=== PATIENT | female | born 1970 | race Caucasian/White ===

== ENCOUNTER 2017-01-23 19:03 | Emergency (ER) | payer MEDICAID ==
[~2017-01-23] VITALS: Ht 152.4 cm; Wt 73.0 kg
[~2017-01-23 19:03] MED LIST: MEGE40TA PO
[2017-01-23 19:08] VITALS: Ht 152.4 cm; Wt 73.0 kg
[2017-01-23] MEDS ORDERED: AMO500 PO (19:32)
[2017-01-23] MEDS ORDERED: IBUP-1542 PO (19:32)
[2017-01-23] MEDS ORDERED: LIDO20SO19 MM (19:32)
--- NOTE | 2017-01-23 21:18 | ERD ---
ER Documentation Chief Complaint Date/Time DATE: 01/23/17 TIME: 21:16 Chief Complaint sore throat x 3 days HPI This patient is a 46-year-old female with history of asthma and pre-type 2 diabetes presenting to the emergency department for moderate sore throat and bilateral ear pain and chills ongoing intermittently for the past 3 days. The patient has taken Advil at home with no relief of symptoms. There are no other alleviating or exacerbating factors or symptoms to report at this time. ROS All systems reviewed and are negative except as per history of present illness. Medications Home Meds Active Scripts Ibuprofen* (Motrin*) 600 Mg Tab, 600 MG PO Q6, #30 TAB Prov:ZACH ESCOBAR PA-C 01/23/17 Lidocaine (Lidocaine Viscous) 100 Ml Soln, 10 ML MM TID Y for PAIN, #1 BOTTLE Prov:ZACH ESCOBAR PA-C 01/23/17 Amoxicillin* (Amoxicillin*) 500 Mg Cap, 500 MG PO BID for 10 Days, #20 CAP Prov:ZACH ESCOBAR PA-C 01/23/17 Megestrol Acetate* (Megace*) 40 Mg Tab, 40 MG PO DAILY for 20 Days, TAB Prov:BELKIS CORDERO MD 07/17/15 Allergies Allergies: Coded Allergies: No Known Drug Allergy (Unverified Allergy, Unknown, 07/17/15) PMhx/Soc History of Surgery: No Anesthesia Reaction: No Hx Neurological Disorder: No Hx Respiratory Disorders: No Hx Cardiac Disorders: No Hx Psychiatric Problems: No Hx Miscellaneous Medical Probl: No Hx Alcohol Use: No Hx Substance Use: No Hx Tobacco Use: No FmHx Noncontributory for chief complaint Physical Exam Vitals Vital Signs Date Time Temp Pulse Resp B/P Pulse Ox O2 Delivery O2 Flow Rate FiO2 01/23/17 19:08 98.8 102 20 141/66 100 Physical Exam Const: The patient is resting comfortably in no acute distress. Head: Atraumatic Eyes: Normal Conjunctiva ENT: There is erythema to bilateral tympanic membranes. There is no bulging of tympanic membranes bilaterally. The tonsils are slightly enlarged and erythematous with scant exudate present bilaterally. The airway is clear. There is no uvular shift. Neck: Full range of motion..~ No meningismus. Resp: Clear to auscultation bilaterally Cardio: Regular rate and rhythm, no murmurs Abd: Soft, non tender, non distended. Normal bowel sounds Skin: No petechiae or rashes Back: No midline or flank tenderness Ext: No cyanosis, or edema Neur: Awake and alert Psych: Normal Mood and Affect Procedures/MDM 46-year-old female presents secondary to complaints of sore throat and tactile fevers and bilateral ear pain. On physical examination the patient's vitals are within normal limits. Examination of the tympanic membranes bilaterally reveals erythema but no mastoid tenderness or bulging of the tympanic membranes or evidence of TM rupture bilaterally. Additionally there is erythema with scant exudate of the tonsils bilaterally. I suspect strep pharyngitis and otitis media. I doubt tympanic membrane rupture, mastoiditis, peritonsillar abscess, retropharyngeal abscess, septicemia, or other emergent conditions. The patient is stable for outpatient management with prescriptions for amoxicillin, viscous lidocaine, and ibuprofen. The patient understands the diagnosis and treatment plan. All questions and concerns were addressed. The patient was advised to return to the emergency department immediately with any new or worsening symptoms and she demonstrates good understanding of this information. Patient was hemodynamically stable prior to discharge. Departure Diagnosis: Primary Impression: Otitis media Additional Impressions: Tonsillitis Sore throat Condition: Fair Patient Instructions: When You Have a Sore Throat, Self-Care for Sore Throats, Otitis Media, Abx Tx (Adult) [facility] Usted se marvin hecho un examen mdico de control que le indica que no est en jesse condicin que requiera tratamiento urgente en el Departamento de Emergencia. Un estudio ms profundo y el tratamiento de cerna condicin pueden esperar sin ningn riesgo hasta que usted sea atendida/o en el consultorio de cerna mdico o jesse cl jackie. Es responsabilidad suya arreglar jesse vamsi para el seguimiento del pedro. MANEJO DE CONDICIONES NO URGENTES EN EL FUTURO 1) Si usted tiene un mdico de atencin primaria: Usted debera llamar a cerna mdico de atencin primaria antes de venir al departamento de emergencia. Despus de las horas de consultorio, cerna doctor o cerna asociado/a est disponible por telfono. El mdico o enfermero de tino en el servicio telefnico puede asesorarle por maribell medio para atender el problema, o pedro contrario se puede programar jesse vamsi. 2) Si usted no tiene un mdico de atencin primaria: Llame al mdico o clnica de referencia que aparece abajo dong las horas de consultorio para hacer jesse vamsi para que le vean. CLINICAS: [facility] [phone] [facility] [phone] [facility] [phone] [place] [id number] [phone] [place] [id number] [phone] [facility]. [phone] [address] Additional Instructions: No mas mejor en 2-3 richter, regresar. Mas peor en 24 horas, regresear rapidamente. Ir a doctor primario in 5-7 richter. Usar instrucciones cuando ngoc medicamento. ZACH ESCOBAR PA-C Jan 23, 2017 21:18
== END 2017-01-23 19:33 | disposition home or self-care (01) ==
LOC: FTE 19:03 → E/R 19:33
DX: H66.93 Otitis media, unspecified, bilateral (principal); J03.90 Acute tonsillitis, unspecified
CPT/HCPCS: 99283

== ENCOUNTER 2019-06-09 18:43 | Emergency (ER) | payer MEDICAID, OTHER ==
[~2019-06-09] VITALS: Ht 147.3 cm; Wt 70.5 kg
[~2019-06-09 18:43] MED LIST changes: +AMOX500C2 PO; +IBUP-1542 PO; +LIDO20SO19 MM
[2019-06-09 18:46] VITALS: BP 159/77; PULSE 84; RESP 18; Ht 147.3 cm; Wt 70.5 kg
[2019-06-09] MEDS ORDERED: D-ME118S24 PO (20:31)
[2019-06-09] MEDS ORDERED: FLOV110 INHALATION (20:31)
[2019-06-09] MEDS ORDERED: PRED20TA PO (20:35)
--- NOTE | 2019-06-09 22:22 | ERD ---
ER Documentation Chief Complaint Chief Complaint COUGH X2DAYS ROS All systems reviewed and are negative except as per history of present illness. Medications Home Meds Active Scripts Prednisone* (Prednisone*) 20 Mg Tab, 20 MG PO DAILY for 4 Days, #4 TAB Prov:JUAN MARSHALL DO 06/09/19 D-Methorphan Hb/P-Epd HCl/Bpm (Rhylrcsicq-Npabcgzkpda-Tp Syr) 118 Ml Syrup, 15 ML PO Q4H PRN for COUGH for 10 Days, #1 BOTTLE Prov:JUAN MARSHALL DO 06/09/19 Fluticasone Propionate* (Flovent* HFA 110) 12 Gm Inha, 1 PUFF INHALATION BID for cough for 14 Days, #1 INHALER Prov:JUAN MARSHALL DO 06/09/19 Ibuprofen* (Motrin*) 600 Mg Tab, 600 MG PO Q6, #30 TAB Prov:ZACH ESCOBAR PA-C 01/23/17 Lidocaine (Lidocaine Viscous) 100 Ml Soln, 10 ML MM TID PRN for PAIN, #1 BOTTLE Prov:ZACH ESCOBAR PA-C 01/23/17 Amoxicillin* (Amoxicillin*) 500 Mg Cap, 500 MG PO BID for 10 Days, #20 CAP Prov:ZACH ESCOBAR PA-C 01/23/17 Megestrol Acetate* (Megace*) 40 Mg Tab, 40 MG PO DAILY for 20 Days, TAB Prov:BELKIS CORDERO MD 07/17/15 Allergies Allergies: Coded Allergies: No Known Drug Allergy (Unverified Allergy, Unknown, 07/17/15) PMhx/Soc History of Surgery: No Anesthesia Reaction: No Hx Neurological Disorder: No Hx Respiratory Disorders: No Hx Cardiac Disorders: No Hx Psychiatric Problems: No Hx Miscellaneous Medical Probl: No Hx Alcohol Use: No Hx Substance Use: No Hx Tobacco Use: No Physical Exam Vitals Vital Signs Date Temp Pulse Resp B/P (MAP) Pulse Ox O2 O2 Flow FiO2 Time Delivery Rate 06/09/19 98.4 84 18 159/77 98 18:46 (104) Physical Exam Const: No acute distress Head: Atraumatic Eyes: Normal Conjunctiva ENT: Normal External Ears, Nose and Mouth. Neck: Full range of motion. No meningismus. Resp: Clear to auscultation bilaterally Cardio: Regular rate and rhythm, no murmurs Abd: Soft, non tender, non distended. Normal bowel sounds Skin: No petechiae or rashes Back: No midline or flank tenderness Ext: No cyanosis, or edema Neur: Awake and alert Psych: Normal Mood and Affect Departure Diagnosis: Primary Impression: Cough Condition: Fair Patient Instructions: Cough, Chronic, Uncertain Cause, (Adult) Referrals: [facility] YOU HAVE RECEIVED A MEDICAL SCREENING EXAM AND THE RESULTS INDICATE THAT YOU DO NOT HAVE A CONDITION THAT REQUIRES URGENT TREATMENT IN THE EMERGENCY DEPARTMENT. FURTHER EVALUATION AND TREATMENT OF YOUR CONDITION CAN WAIT UNTIL YOU ARE SEEN IN YOUR DOCTORS OFFICE WITHIN THE NEXT 1-2 DAYS. IT IS YOUR RESPONSIBILITY TO MAKE AN APPOINTMENT FOR FOLOW-UP CARE. IF YOU HAVE A PRIMARY DOCTOR --you should call your primary doctor and schedule an appointment IF YOU DO NOT HAVE A PRIMARY DOCTOR YOU CAN CALL OUR PHYSICIAN REFERRAL HOTLINE AT IF YOU CAN NOT AFFORD TO SEE A PHYSICIAN YOU CAN CHOSE FROM THE FOLLOWING [facility] [address] [facility]. [facility] [address] [employer] [facility]. [facility] [address] [facility] [address] [facility] [address] [facility]. [facility]. [address] Additional Instructions: Call your primary care doctor TOMORROW for an appointment during the next 1-2 days.See the doctor sooner or return here if your condition worsens before your appointment time. Llame al doctor MAANA y tracey jesse SHANIA PARA DENTRO DE 1-2 LOZADA.Dgale a la secretaria que nosotros le instruimos hacer esta shania.Avise o llame si cerna condicin se empeora antes de la shania. Regresa aqui si peor o no mejor. JUAN MARSHALL DO Jun 09, 2019 22:22
== END 2019-06-09 20:33 | disposition home or self-care (01) ==
LOC: E/R 18:43
DX: R05 Cough (principal)
CPT/HCPCS: 71045; Z7502